=== PATIENT | female | born 1990 | race Caucasian/White ===

== ENCOUNTER 2019-06-05 07:56 | Emergency (ER) | payer MEDICAID | END 2019-06-05 08:45 | disposition home or self-care (01) | LOC: NAV ERS 07:56 | DX: J02.0 Streptococcal pharyngitis (principal); F32.9 Major depressive disorder, single episode, unspecified; F17.210 Nicotine dependence, cigarettes, uncomplicated | CPT/HCPCS: 87430; 99283 ==

== ENCOUNTER 2019-07-10 18:22 | Emergency (ER) | payer MEDICAID, SELFPAY | END 2019-07-10 19:29 | disposition home or self-care (01) | LOC: NAV ERS 18:22 | DX: R21 Rash and other nonspecific skin eruption (principal); F17.210 Nicotine dependence, cigarettes, uncomplicated | CPT/HCPCS: 99281 ==